=== PATIENT | female | born 1950 | race Two or more races ===

== ENCOUNTER 2018-05-27 07:30 | Inpatient (IN) | payer OTHER ==
[~2018-05-27] VITALS: Ht 160 cm; Wt 99.8 kg
[~2018-05-27 07:30] MED LIST: INTEGRA PLUS C1 EACH PO; OXYC1TAB9 PO; XARELTO10 MG PO
[2018-05-27] MEDS ORDERED: ZANTAC150 M3 PO (12:37)
[2018-06-03] MEDS ORDERED: XARELTO10 MG PO (16:23)
[2018-06-03] MEDS ORDERED: OXYC1TAB9 PO (16:23)
[2018-06-03] MEDS ORDERED: INTEGRA PLUS C1 EACH PO (16:23)
== END 2018-06-03 18:11 | DRG 470 ==
LOC: SURH 06-01 05:10 → O/R 06-01 05:10 → SURH 06-01 07:00
PROVIDERS: ADMIT Orthopaedic Surgery Sports Medicine
PROC: 0SRD0J9 Replacement of Left Knee Joint with Synthetic Substitute, Cemented, Open Approach (ICD-10-PCS; principal; 2018-06-01 07:00)
DX: M17.12 Unilateral primary osteoarthritis, left knee (principal); Z96.651 Presence of right artificial knee joint

== ENCOUNTER 2018-05-27 08:30 | Outpatient (CLI) | payer OTHER ==
[2018-05-27] MEDS ORDERED: ZANTAC150 M3 PO (12:37)
== END 2018-05-27 08:47 | disposition home or self-care (01) ==
LOC: LAB 08:30
DX: D68.8 Other specified coagulation defects (principal); Z01.818 Encounter for other preprocedural examination; I10 Essential (primary) hypertension